=== PATIENT | female | born 1980 | race Caucasian/White ===

== ENCOUNTER 2024-06-03 21:19 | Emergency (ER) | payer BC ==
[~2024-06-03] VITALS: Ht 154.9 cm; Wt 106.6 kg
[2024-06-03 21:40] VITALS: PULSE 114; RESP 22; TEMP 98.4
[2024-06-03] MEDS ORDERED: ULTRAM 50MG50 MG PO (22:01)
[2024-06-03] MEDS: KETOROLAC TROMETHAMINE 60 MG/2 ML VIAL IM STA (22:41)
[2024-06-03 22:42] VITALS: BP 129/84; PULSE 74; RESP 18; TEMP 98.3; O2SAT 98
== END 2024-06-03 22:43 | disposition home or self-care (01) ==
LOC: ER 21:38
DX: S80.12XA Contusion of left lower leg, initial encounter (principal); W21.04XA Struck by golf ball, initial encounter; Y92.89 Other specified places as the place of occurrence of the external cause; I10 Essential (primary) hypertension; B20 Human immunodeficiency virus [HIV] disease
CPT/HCPCS: 73590; 99283; J1885